=== PATIENT | female | born 1980 | race Two or more races ===

== ENCOUNTER 2022-04-24 10:41 | Outpatient (REF) | payer OTHER, SELFPAY ==
[2022-04-24 11:24] LABS: Hematocrit 43.4 % (37.0-47.0); Mean Corpuscular HGB Conc 32.3 g/dl (31.0-35.0); Mean Corpuscular Hemoglobin 29.2 pg (27.0-33.0); Mean Corpuscular Volume 90.4 fL (80.0-98.0); Mean Platelet Volume 10.9 fL (9.4-12.3); Platelet Count 257 X10*3/uL (160-400); Red Cell Distribution Width 13.2 % (11.0-16.0); White Blood Count 6.9 X10*3/uL (4.8-10.8)
[2022-04-24 11:39] LABS: Alanine Aminotransferase 17 U/L (0-31); Albumin Level 4.5 g/dL (3.5-5.0); Alkaline Phosphatase 76 U/L (39-117); Anion Gap 15 (12-20); Aspartate Amino Transferase 19 U/L (5-31); Bilirubin Total 0.8 mg/dL (0.0-1.0); Blood Urea Nitrogen 14 mg/dL (9-16); Calcium 9.5 mg/dL (8.4-10.2); Carbon Dioxide 26 mmol/L (22-29); Chloride 103 mmol/L (96-108); Cholesterol 173 mg/dL; Estimated Glomerular Filt Rate > 60; Gamma Glutamyl Transpeptidase 27 U/L (7-33); Glucose Random 100 mg/dL (60-115); HDL Cholesterol 61 mg/dL; LDL Cholesterol Calculated 101 mg/dl; Potassium 4.9 mmol/L (3.3-5.1); Sodium 139 mmol/L (135-145); Total Protein 8.1 g/dL (6.5-8.0); Triglycerides 59 mg/dL
[2022-04-24 12:02] LABS: Free T4 (Free Thyroxine) 1.13 ng/dL (0.71-1.85); Insulin 6 uU/mL (2-29); Thyroid Stimulating Hormone 2.13 uIU/mL (0.32-4.0); Vitamin D 25-OH Total 20.2 ng/mL (>30)
[2022-04-24 14:11] LABS: Cortisol Random 7.1 ug/dL
[2022-04-26 15:41] LABS: DHEA Sulfate 154 mcg/dL (15-205); Lutenizing Hormone 3.8 mIU/mL
[2022-04-27 11:26] LABS: CRP High Sensitivity 0.7 mg/L
[2022-04-27 13:07] LABS: Thyroglobulin Antibodies <1 IU/mL (< or = 1)
[2022-04-27 16:26] LABS: Homocysteine 5.7 umol/L (<10.4)
[2022-04-27 21:32] LABS: Thyroid Peroxidase Antibodies 2 IU/mL (<9)
[2022-04-30 13:46] LABS: Triiodothyronine T3 Reverse 19 ng/dL (8-25)
[2022-04-30 14:32] LABS: Testosterone, Free 2.8 pg/mL (0.1-6.4); Testosterone, Total 32 ng/dL (2-45)
[2022-04-30 18:37] LABS: Parathyroid Hormone Related Pr 11 pg/mL (11-20)
[2022-05-01 02:22] LABS: Dihydrotestosterone 8 ng/dL (< OR = 20)
[2022-05-03 04:57] LABS: Estradiol Free 1.37 pg/mL; Estradiol, Ultrasensitive 77 pg/mL
[2022-05-05 17:27] LABS: Progesterone <0.1 ng/mL
== END 2022-04-24 10:42 | disposition home or self-care (01) ==
LOC: HO.LAB 10:41
PROVIDERS: Visit Provider Internal Medicine
DX: E03.9 Hypothyroidism, unspecified (principal); F32.81 Premenstrual dysphoric disorder; E11.9 Type 2 diabetes mellitus without complications; E55.9 Vitamin D deficiency, unspecified; D64.9 Anemia, unspecified; E28.2 Polycystic ovarian syndrome; E78.5 Hyperlipidemia, unspecified; K76.0 Fatty (change of) liver, not elsewhere classified; R53.83 Other fatigue
CPT/HCPCS: 36415; 80053; 80061; 82306; 82533; 82627; 82642; 82670; 82681; 82977; 83001; 83002; 83090; 83519; 83525; 84144; 84402; 84403; 84439; 84443; 84481; 84482; 85027; 86141; 86376; 86800